=== PATIENT | female | born 1985 | race Caucasian/White ===

== ENCOUNTER 2021-11-07 03:26 | Emergency (ER) | payer OTHER, MEDICAID, SELFPAY ==
[2021-11-07] VITALS (11 sets, daily range): BP systolic 81–122; BP diastolic 46–66; PULSE 60–83; RESP 18–20; TEMP 36.8; O2SAT 92–98
[2021-11-07] MEDS: SODIUM CHLORIDE 0.9% 1,000 ML 1000 ML IV (04:42)
[2021-11-07] MEDS: ONDANSETRON 4 MG/2 ML INJ IV ×2 (04:42→09:04)
[2021-11-07 04:52] LABS: Add Manual Diff / Slide Review NO; Basophils Absolute Auto 0 /uL (0-100); Basophils Percent Auto 0.4 % (0-2); Eosinophils Absolute Auto 100 /uL (0-450); Hematocrit 37.3 % (36-46); Hemoglobin 13.3 g/dL (12.0-16.0); Lymphocytes Absolute Auto 2000 /uL (1100-4500); Lymphocytes Percent Auto 26.3 % (25-40); Mean Corpuscular HGB Conc 35.7 % (30-36); Mean Corpuscular Hemoglobin 33.2 PG (26-34); Mean Corpuscular Volume 93.2 fL (80-100); Monocytes Absolute Auto 500 /uL (0-900); Neutrophils Absolute Auto 5100 /uL (1500-7000); Neutrophils Percent Auto 66.3 % (50-75); Platelet Count 203 X10^3/uL (150-400); Red Cell Distribution Width 12.4 % (11.6-14.8); White Blood Cell Count 7.8 X10^3/uL (4.5-11.0)
[2021-11-07 05:00] LABS: Alanine Aminotransferase 14 IU/L (<35); Albumin 4.7 g/dL (3.5-5.0); Albumin Globulin Ratio 1.6 (1.0-2.8); Alkaline Phosphatase 46 U/L (38-126); Aspartate Aminotransferase 27 IU/L (14-36); BUN Creatinine Ratio 18.7 (6-22); Bilirubin Total 1.5 mg/dL (0.2-1.3); Blood Urea Nitrogen 14 mg/dL (7-17); Calcium 9.6 mg/dL (8.4-10.2); Carbon Dioxide 24 mmol/L (22-32); Chloride 105 mmol/L (98-107); Estimated Glomerular Filt Rate > 60 mL/min (>60); Glucose 100 mg/dL (70-100); HEMOLYSIS < 15 (0-50); Lipase 53 U/L (23-300); Potassium 3.9 mmol/L (3.4-5.1); Sodium 137 mmol/L (137-145); Total Protein 7.7 g/dL (6.3-8.2)
[2021-11-07] MEDS: KETOROLAC 30 MG/ML VIAL 15 MG IV (05:20)
--- NOTE | 2021-11-07 05:24 | ED_ITS ---
HPI - Abdominal Pain <Estela Ferguson, DO - Last Filed: 11/08/21 07:35> General Chief Complaint: Abdominal Pain Stated Complaint: d/v/n back pain, lower abd pain Time Seen by Provider: 11/07/21 05:16 Source: patient Mode of arrival: Wheelchair Limitations: no limitations History of Present Illness HPI narrative: This is a 35-year-old female on fluoxetine and midodrine. Patient states she h as had 24 hours of vomiting and right lower quadrant pain. Patient denies fevers but has felt chilled. She has felt shaky. She has had nausea and vomiting persistently. Denies any diarrhea constipation and states she has had normal bowel movements in the last 24 hours. She denies any black or bloody stools. Denies dysuria urgency or frequency. No vaginal bleeding or discharge. She has had some right back discomfort as well. Patient has a history of tubal ligation and hysterectomy with removal of cervix. She states both ovaries are present. She states she is allergic to penicillin. No tobacco, alcohol occasional edible. Her significant other had nausea and vomiting on Thursday the 02 of November 5 days ago. Related Data Home Medications Medication Instructions Recorded Confirmed fluoxetine 40 mg capsule (Prozac) 40 mg PO HS #0 10/20/17 05/25/18 oxybutynin chloride 5 mg tablet 5 mg PO TID #90 10/20/17 05/25/18 midodrine 5 mg tablet 5 mg PO TID 05/25/18 05/25/18 propranolol PO 05/25/18 05/25/18 Previous Rx's Medication Instructions Recorded lamotrigine 100 mg tablet 100 mg PO QHS #30 09/02/16 (Lamictal) fluticasone propionate 50 1 spray INTRANASAL BID #16 gm 07/27/17 mcg/actuation nasal spray,suspension loratadine 10 mg tablet 10 mg PO QDAY #30 tab 07/27/17 albuterol sulfate 90 mcg/actuation 1 puff INH QIDP PRN #1 inh 10/16/17 aerosol inhaler (Proventil HFA) fluticasone propionate 110 110 mcg INH BID #1 inh 10/16/17 mcg/actuation HFA aerosol inhaler (Flovent HFA) fluticasone propionate 110 1 puff INH BID #1 inh 10/21/17 mcg/actuation HFA aerosol inhaler (Flovent HFA) ondansetron 4 mg disintegrating 4 mg PO Q8H PRN #10 tab 11/07/21 tablet ondansetron 4 mg disintegrating 4 mg PO Q8H PRN #10 tab 11/07/21 tablet Allergies Allergy/AdvReac Type Severity Reaction Status Date / Time Penicillins [PENICILLINS] Allergy Unknown Unverified 05/25/18 17:05 Review of Systems <Estela Ferguson DO - Last Filed: 11/08/21 07:35> Review of Systems ROS Unobtainable: All systems reviewed & are unremarkable except as noted in HPI and below Patient History <Estela Ferguson DO - Last Filed: 11/08/21 07:35> Medical History Anemia (~2006) Ankle pain (~2008) Anxiety (~1999) Asthma (~1989) Cervical spine disease (~2009) Chronic back pain (~2008) Depression (~1999) Fecal incontinence (~2013) Foot pain (~2009) Gastric ulcer (~2014) GI bleeding (~2014) Hay fever (~1996) Hemorrhoids (~2011) Orthostatic hypotension (~2009) PTSD (post-traumatic stress disorder) (~1999) Scoliosis (~2009) Shoulder pain (~2003) Urinary incontinence (~2011) Surgical History Status post hysterectomy Status post laparoscopy Status post tubal ligation Family History Brother Heart disease Hypertension Child Age: 9 Epilepsy Child Age: 15 ADHD (attention deficit hyperactivity disorder) Father Age: 68 COPD (chronic obstructive pulmonary disease) Heart disease Hypertension Hyperlipidemia Mother Age: 58 Emphysema, unspecified Mental health problem Stroke Sister Age: 37 Cervical cancer Lupus Sister Age: 28 Back pain Social History marital status: unmarried,single household members: children and friend(s) pets and animals: No education level: college occupational status: employed [employer] Smoking Status: Never smoker alcohol intake: current substance use type: does not use during the past year weight has: decreased > 10 lbs well-balanced diet: about half the time daily servings fruits/ve-4 caffeine: Yes eating out: rarely or never Type(s) of exercise: walking frequency: daily Smoking Status: Never smoker alcohol intake frequency: other Substance Use Type: marijuana Exam <Estela Ferguson DO - Last Filed: 11/08/21 07:35> Narrative Exam Narrative: GENERAL: Alert and oriented x three, female in moderate distress. HEENT: Head normocephalic, atraumatic, EOMI, pupils reactive, face symmetric, moist mucous membranes NECK: Supple, full range of motion CARDIOVASCULAR: Regular rate and rhythm without murmurs, rubs or gallops. RESPIRATORY: Breath sounds equal bilaterally, no wheezes rales or rhonchi. ABDOMEN: Soft, generalized tenderness but greatest atright lower quadrant tenderness. Normoactive bowel sounds all 4 quadrants. No guarding or rebound, rigidity, no mass. : No CVA tenderness EXTREMITIES: Normal range of motion, no clubbing or edema. Neurovascularly intact NEUROLOGICAL: Cranial nerves II through XII grossly intact. Moving all extremities SKIN: Warm, dry, no petechiae, no rashes or lesions. Initial Vital Signs Initial Vital Signs: Vital Signs Temperature 98.2 F 11/07/21 04:19 Pulse Rate 77 11/07/21 04:19 Respiratory Rate 18 11/07/21 04:19 Blood Pressure 122/58 L 11/07/21 04:19 Pulse Oximetry 97 11/07/21 04:19 <Quin Leung DO - Last Filed: 11/07/21 16:11> Initial Vital Signs Initial Vital Signs: Vital Signs Temperature 98.2 F 11/07/21 04:19 Pulse Rate 77 11/07/21 04:19 Respiratory Rate 18 11/07/21 04:19 Blood Pressure 122/58 L 11/07/21 04:19 Pulse Oximetry 97 11/07/21 04:19 Course <Estela Ferguson DO - Last Filed: 11/08/21 07:35> Orders Ordered: Discontinued Medications Hydromorphone HCl (Hydromorphone 0.5 Mg Inj) 0.5 mg IV NOW ONE Stop: 11/07/21 06:46 Last Admin: 11/07/21 06:54 Dose: 0.5 mg Documented by: KEIRY Hydromorphone HCl (Hydromorphone 0.5 Mg Inj) 0.5 mg IV NOW ONE Stop: 11/07/21 08:45 Last Admin: 11/07/21 09:06 Dose: 0.5 mg Documented by: ANDRES Sodium Chloride (Normal Saline 0.9%) 1,000 mls @ 1,000 mls/hr IV BOLUS ONE Stop: 11/07/21 05:40 Last Infusion: 11/07/21 06:43 Dose: 0 mls/hr Documented by: Admin: 11/07/21 04:42 Dose: 1,000 mls/hr Documented by: KEIRY Ketorolac Tromethamine (Ketorolac 30 Mg/Ml Vial) 15 mg IV NOW ONE Stop: 11/07/21 05:17 Last Admin: 11/07/21 05:20 Dose: 15 mg Documented by: KEIRY Lorazepam (Lorazepam 2 Mg/Ml Inj) 0.5 mg IV NOW ONE Stop: 11/07/21 06:46 Last Admin: 11/07/21 06:53 Dose: 0.5 mg Documented by: KEIRY Morphine Sulfate (Morphine 4 Mg/Ml Inj) 4 mg IV NOW ONE Stop: 11/07/21 05:57 Last Admin: 11/07/21 06:03 Dose: 4 mg Documented by: BERONICA Ondansetron HCl (Ondansetron 4 Mg/2 Ml Inj) 4 mg IV NOW ONE Stop: 11/07/21 04:27 Last Admin: 11/07/21 04:42 Dose: 4 mg Documented by: KEIRY Ondansetron HCl (Ondansetron 4 Mg/2 Ml Inj) 4 mg IV NOW ONE Stop: 11/07/21 08:45 Last Admin: 11/07/21 09:04 Dose: 4 mg Documented by: ANDRES Pantoprazole Sodium (Pantoprazole 40 Mg Vial) 40 mg IV NOW ONE Stop: 11/07/21 08:45 Last Admin: 11/07/21 09:06 Dose: 40 mg Documented by: ANDRES Promethazine HCl (Promethazine 6.25 Mg/5 Ml Syrup) 25 mg PO NOW ONE Stop: 11/07/21 05:41 Last Admin: 11/07/21 06:33 Dose: Not Given Documented by: KEIRY Vital Signs Vital signs: Vital Signs - 8 hr 11/07/21 08:30 11/07/21 09:00 11/07/21 09:30 Pulse Rate 82 64 65 Respiratory Rate Blood Pressure 98/56 L 102/55 L 81/46 L Pulse Oximetry 96 97 92 11/07/21 09:33 11/07/21 10:06 Pulse Rate 65 83 Respiratory Rate 20 Blood Pressure 98/55 L 103/53 L Pulse Oximetry 98 97 <Quin Leung DO - Last Filed: 11/07/21 16:11> Orders Ordered: Discontinued Medications Hydromorphone HCl (Hydromorphone 0.5 Mg Inj) 0.5 mg IV NOW ONE Stop: 11/07/21 06:46 Last Admin: 11/07/21 06:54 Dose: 0.5 mg Documented by: KEIRY Hydromorphone HCl (Hydromorphone 0.5 Mg Inj) 0.5 mg IV NOW ONE Stop: 11/07/21 08:45 Last Admin: 11/07/21 09:06 Dose: 0.5 mg Documented by: ANDRES Sodium Chloride (Normal Saline 0.9%) 1,000 mls @ 1,000 mls/hr IV BOLUS ONE Stop: 11/07/21 05:40 Last Infusion: 11/07/21 06:43 Dose: 0 mls/hr Documented by: Admin: 11/07/21 04:42 Dose: 1,000 mls/hr Documented by: KEIRY Ketorolac Tromethamine (Ketorolac 30 Mg/Ml Vial) 15 mg IV NOW ONE Stop: 11/07/21 05:17 Last Admin: 11/07/21 05:20 Dose: 15 mg Documented by: KEIRY Lorazepam (Lorazepam 2 Mg/Ml Inj) 0.5 mg IV NOW ONE Stop: 11/07/21 06:46 Last Admin: 11/07/21 06:53 Dose: 0.5 mg Documented by: KEIRY Morphine Sulfate (Morphine 4 Mg/Ml Inj) 4 mg IV NOW ONE Stop: 11/07/21 05:57 Last Admin: 11/07/21 06:03 Dose: 4 mg Documented by: BERONICA Ondansetron HCl (Ondansetron 4 Mg/2 Ml Inj) 4 mg IV NOW ONE Stop: 11/07/21 04:27 Last Admin: 11/07/21 04:42 Dose: 4 mg Documented by: KEIRY Ondansetron HCl (Ondansetron 4 Mg/2 Ml Inj) 4 mg IV NOW ONE Stop: 11/07/21 08:45 Last Admin: 11/07/21 09:04 Dose: 4 mg Documented by: ANDRES Pantoprazole Sodium (Pantoprazole 40 Mg Vial) 40 mg IV NOW ONE Stop: 11/07/21 08:45 Last Admin: 11/07/21 09:06 Dose: 40 mg Documented by: ANDRES Promethazine HCl (Promethazine 6.25 Mg/5 Ml Syrup) 25 mg PO NOW ONE Stop: 11/07/21 05:41 Last Admin: 11/07/21 06:33 Dose: Not Given Documented by: KEIRY Vital Signs Vital signs: Vital Signs - 8 hr 11/07/21 08:30 11/07/21 09:00 11/07/21 09:30 Pulse Rate 82 64 65 Respiratory Rate Blood Pressure 98/56 L 102/55 L 81/46 L Pulse Oximetry 96 97 92 11/07/21 09:33 11/07/21 10:06 Pulse Rate 65 83 Respiratory Rate 20 Blood Pressure 98/55 L 103/53 L Pulse Oximetry 98 97 MDM - Abdominal Pain <Estela Ferguson DO - Last Filed: 11/08/21 07:35> Lab Data Result diagrams: 11/07/21 04:20 11/07/21 04:20 Labs: Lab Results 11/07/21 11/07/21 11/07/21 Range/Units 04:20 04:20 05:30 WBC 7.8 (4.5-11.0) X10^3/uL RBC 4.00 (4.0-5.2) X10^6/uL Hgb 13.3 (12.0-16.0) g/dL Hct 37.3 (36-46) % MCV 93.2 (80-100) fL MCH 33.2 (26-34) PG MCHC 35.7 (30-36) % RDW 12.4 (11.6-14.8) % Plt Count 203 (150-400) X10^3/uL Neut % (Auto) 66.3 (50-75) % Lymph % (Auto) 26.3 (25-40) % Randall % (Auto) 6.0 (3-14) % Eos % (Auto) 1.0 L (2-4) % Baso % (Auto) 0.4 (0-2) % Neut # (Auto) 5100 (4674-1338) /uL Lymph # (Auto) 2000 (3239-5888) /uL Randall # (Auto) 500 (0-900) /uL Eos # (Auto) 100 (0-450) /uL Baso # (Auto) 0 (0-100) /uL Sodium 137 (137-145) mmol/L Potassium 3.9 (3.4-5.1) mmol/L Chloride 105 (98-107) mmol/L Carbon Dioxide 24 (22-32) mmol/L BUN 14 (7-17) mg/dL Creatinine 0.75 (0.52-1.04) mg/dL Estimated GFR > 60 (>60) mL/min BUN/Creatinine Ratio 18.7 (6-22) Glucose 100 (70-100) mg/dL Calcium 9.6 (8.4-10.2) mg/dL Total Bilirubin 1.5 H (0.2-1.3) mg/dL AST 27 (14-36) IU/L ALT 14 (<35) IU/L Alkaline Phosphatase 46 (38-126) U/L Total Protein 7.7 (6.3-8.2) g/dL Albumin 4.7 (3.5-5.0) g/dL Globulin 3.0 (1.7-4.1) g/dL Albumin/Globulin Ratio 1.6 (1.0-2.8) Lipase 53 (23-300) U/L Urine Color Yellow Urine Appearance Cloudy Urine pH 5.5 (4.5-8.0) Ur Specific Dalton 1.025 (1.000-1.035) Urine Protein 1+ H (Negative) Urine Glucose (UA) Negative (Negative) g/dL Urine Ketones 1+ H (NEGATIVE) Urine Occult Blood Trace-intact (Negative) Urine Nitrate Negative (Negative) Urine Bilirubin Negative (NEGATIVE) Urine Urobilinogen 0.2 (0.2) E.U./dL Ur Leukocyte Esterase 1+ H (NEGATIVE) Urine RBC 0-1/hpf (0-5/HPF) Urine WBC 1-5/hpf (0-5/HPF) Ur Squamous Epith Cells >30 /hpf H (0-5/HPF) Urine Bacteria Moderate (10-30) H (None) Ur Culture Indicated? Cult not indicated Micro UA Comment * Imaging Data CT scan - abdomen/pelvis: Radiologist's Impression: 4 cm complex cystic lesion right hemipelvis with fluid level possible hemorrhagic cyst. Post hysterectomy. Left ovary not identified. Consider pelvic ultrasound with duplex interrogation. Nonspecific ileitis terminal ileum. Appendix not identified. ECG Data Attestation: I personally reviewed and interpreted this ECG as follows: Interpretation: Sinus rhythm rate of 64 IA 194 QRS of 92 and QTC of 429. No acute ST changes appreciated. MDM Narrative Medical decision making narrative: This is a 35-year-old female with vomiting, right lower quadrant pain on exam patient is quite tender she has a 4 cm complex cystic lesion. Some thickening of the ileum which is nonspecific appendix is clearly identified. Patient states she does have an appendix in place. Patient has had quite a bit of pain but has otherwise reassuring labs. Patient signed out to Dr. Leung while awaiting pelvic ultrasound. <Quin Leung, - Last Filed: 11/07/21 16:11> Lab Data Labs: Lab Results 11/07/21 11/07/21 11/07/21 Range/Units 04:20 04:20 05:30 WBC 7.8 (4.5-11.0) X10^3/uL RBC 4.00 (4.0-5.2) X10^6/uL Hgb 13.3 (12.0-16.0) g/dL Hct 37.3 (36-46) % MCV 93.2 (80-100) fL MCH 33.2 (26-34) PG MCHC 35.7 (30-36) % RDW 12.4 (11.6-14.8) % Plt Count 203 (150-400) X10^3/uL Neut % (Auto) 66.3 (50-75) % Lymph % (Auto) 26.3 (25-40) % Randall % (Auto) 6.0 (3-14) % Eos % (Auto) 1.0 L (2-4) % Baso % (Auto) 0.4 (0-2) % Neut # (Auto) 5100 (4487-1276) /uL Lymph # (Auto) 2000 (8394-0392) /uL Randall # (Auto) 500 (0-900) /uL Eos # (Auto) 100 (0-450) /uL Baso # (Auto) 0 (0-100) /uL Sodium 137 (137-145) mmol/L Potassium 3.9 (3.4-5.1) mmol/L Chloride 105 (98-107) mmol/L Carbon Dioxide 24 (22-32) mmol/L BUN 14 (7-17) mg/dL Creatinine 0.75 (0.52-1.04) mg/dL Estimated GFR > 60 (>60) mL/min BUN/Creatinine Ratio 18.7 (6-22) Glucose 100 (70-100) mg/dL Calcium 9.6 (8.4-10.2) mg/dL Total Bilirubin 1.5 H (0.2-1.3) mg/dL AST 27 (14-36) IU/L ALT 14 (<35) IU/L Alkaline Phosphatase 46 (38-126) U/L Total Protein 7.7 (6.3-8.2) g/dL Albumin 4.7 (3.5-5.0) g/dL Globulin 3.0 (1.7-4.1) g/dL Albumin/Globulin Ratio 1.6 (1.0-2.8) Lipase 53 (23-300) U/L Urine Color Yellow Urine Appearance Cloudy Urine pH 5.5 (4.5-8.0) Ur Specific Dalton 1.025 (1.000-1.035) Urine Protein 1+ H (Negative) Urine Glucose (UA) Negative (Negative) g/dL Urine Ketones 1+ H (NEGATIVE) Urine Occult Blood Trace-intact (Negative) Urine Nitrate Negative (Negative) Urine Bilirubin Negative (NEGATIVE) Urine Urobilinogen 0.2 (0.2) E.U./dL Ur Leukocyte Esterase 1+ H (NEGATIVE) Urine RBC 0-1/hpf (0-5/HPF) Urine WBC 1-5/hpf (0-5/HPF) Ur Squamous Epith Cells >30 /hpf H (0-5/HPF) Urine Bacteria Moderate (10-30) H (None) Ur Culture Indicated? Cult not indicated Micro UA Comment * Imaging Data US - [employer]: Radiologist's Impression: Signed Patient: Kary Holman MR#: [id number] : 1985 Acct:[id number] Age/Sex: 35 / F Date of Service: 11/07/21 Loc: ED Accession Number: [id number] ?? Procedure: US pelvic complete Ordering Provider: Quin Leung D.O. PROCEDURE:? US PELVIC COMPLETE ? INDICATIONS:? PAIN ? TECHNIQUE:? Real-time scanning was performed of the pelvic organs, with image documentation.? Additional endovaginal scanning was necessary due to incomplete visualization of the adnexal and endometrial structures by transabdominal scanning.? ? COMPARISON:? None. ? FINDINGS:? ?? Uterus:? Surgically absent. ? Ovaries:? The right ovary measures 3.9 x 2.4 x 3 cm.? A 3 x 2.4 x 2.5 cm hypoechoic lesion with internal echoes is seen in the ovary, compatible with a hemorrhagic cyst or endometrioma. The left ovary measures 1.5 x 2.5 x 2 point cm. ? Other:? No pathologic free abdominal or pelvic fluid. ? ? IMPRESSION:? Hypoechoic lesion within the right ovary as detailed above, which may reflect a hemorrhagic cyst or endometrioma. ? We strive to produce accurate, complete, and clear reports of imaging services. To assist us in improving patient care, this report was composed using standard report templates and voice recognition software. Therefore, it may contain abnormal punctuation, insertions and/or omissions. Occasional wrong-word or sound-alike substitutions may occur. Though we review the report and make efforts to correct it, we do recommend that the report be read carefully in proper context to recognize any text inaccuracies. ? ? Dictated by: Syed Clark M.D. on 11/07/2021 at 8:39 ? ? MDM Narrative Medical decision making narrative: This is a 35-year-old female with vomiting, right lower quadrant pain on exam patient is quite tender she has a 4 cm complex cystic lesion. Some thickening of the ileum which is nonspecific appendix is clearly identified. Patient states she does have an appendix in place. Patient has had quite a bit of pain but has otherwise reassuring labs. Patient signed out to Dr. Leung while awaiting pelvic ultrasound. Patient signed out to me by Dr. Ferguson. I have seen and evaluated patient myself. She continues to be nauseous no actual vomiting emergency department. CT does show some ileitis which is most consistent with her symptoms. However ovarian cyst was noted as well. Pelvic ultrasound also confirmed ovarian cyst without torsion. Patient is persistently nauseated despite Zofran Phenergan Ativan. She continues to have pain despite Toradol. He Dilaudid. I have discussed with her she will experience some pain and, nausea. We discussed oral rehydration technique. At this time there is no need for admission. She understands that and would actually like to be curled up in her bed. Discharge Plan Departure Patient Disposition: Home Clinical Impression: Gastroenteritis, Cyst of right ovary Instructions: Ovarian Cyst, DI for Viral Gastroenteritis -- Adult Activity Restrictions/Additional Instructions: *You have been diagnosed with gastroenteritis and right ovarian cyst *What to do: He increase fluids as tolerated. Recommend Pedialyte or Gatorade like substance. He may eat as tolerated. He may experience some pain as well. I recommend taking pain medications as Tylenol or ibuprofen about 15-30 minute after your nausea medication. *Continue to take medications as directed--> SENT TO [facility] Zofran 4 mg every 8 hours if needed for nausea or vomiting Ibuprofen 800 mg every 8 hours if needed for [id number] pain Tylenol 1000 mg every 6 hours if needed for [id number] *Follow up with your primary care provider in 2-3 days or call [phone] *Return to ER if you should have increasing pain, fever, inability to tolerate fluids, persistent vomiting despite medication or any new, worsening or concerning symptoms Prescriptions: New ondansetron 4 mg tablet,disintegrating 4 mg PO Q8H PRN (Reason: nausea and vomiting) Qty: 10 0RF ondansetron 4 mg tablet,disintegrating 4 mg PO Q8H PRN (Reason: nausea and vomiting) Qty: 10 0RF No Action midodrine 5 mg tablet 5 mg PO TID 0RF propranolol PO 0RF lamotrigine [Lamictal] 100 MG tablet 100 mg PO QHS Qty: 30 2RF fluticasone propionate 16 GM spray,suspension 1 spray Intranasal BID Qty: 16 0RF loratadine 10 MG tablet 10 mg PO QDAY Qty: 30 0RF albuterol sulfate [Proventil HFA] 90 MCG/PUFF HFA aerosol inhaler 1 puff INH QIDP PRNQty: 1 0RF fluticasone propionate [Flovent HFA] 12 GM HFA aerosol inhaler 110 mcg INH BID Qty: 1 0RF oxybutynin chloride 5 MG tablet 5 mg PO TID Qty: 90 0RF fluoxetine [Prozac] 40 MG capsule 40 mg PO HS Qty: 0 0RF fluticasone propionate [Flovent HFA] 12 GM HFA aerosol inhaler 1 puff INH BID Qty: 1 0RF
--- NOTE | 2021-11-07 05:52 | DI.CT.S_ITS ---
PROCEDURE: CT ABDOMEN PELVIS W CON INDICATIONS: RLQ pain X 24 hours, vomiting TECHNIQUE: After the administration of intravenous contrast, axial sections acquired from the lung bases to the pubic symphysis. Coronal and sagittal reformats were performed. For radiation dose reduction, the following was used: automated exposure control, adjustment of mA and/or kV according to patient size. COMPARISON: [facility], CT, CT ABDOMEN PELVIS WITH CONTRAST, 11/08/2020, 14:06. [facility], CT, CT ABDOMEN PELVIS WITH CONTRAST, 10/01/2019, 14:17. FINDINGS: Image quality: Excellent. Lung bases: Unremarkable. Heart: No significant findings. ABDOMEN: Liver: Unremarkable. Gallbladder: Unremarkable. Biliary ducts: Unremarkable. Pancreas: Unremarkable. Spleen: Unremarkable. Adrenal Glands: Unremarkable. Kidneys and Ureters: Unremarkable. Stomach and Bowel: Stomach and colon are unremarkable. Mild circumferential wall thickening involving the terminal ileum which could be due to underdistention versus ileitis. The appendix is not identified. No free fluid or air identified adjacent to the cecum. Peritoneum: No abnormal intraperitoneal fluid. No free air. Ventral Wall: No hernias. Abdominal Nodes: No retroperitoneal or mesenteric adenopathy by size criteria. Vessels: Aorta and inferior vena cava are normal in size. PELVIS: Pelvic Organs: Uterus is absent. 3 centimeter right adnexal cyst with internal fluid debris level. Left ovary is not identified. Bladder: Unremarkable. Pelvic Nodes: No enlarged lymph nodes. Miscellaneous: No hernias are seen. Bones: Unremarkable. IMPRESSION: 1. 3.0 centimeter complex right adnexal cyst. Recommend pelvic ultrasound for definitive characterization. 2. The appendix is not identified. No secondary signs of appendicitis such as free fluid or inflammatory change noted adjacent to the cecum. 3. Mild circumferential wall thickening involving the terminal ileum which could be due to underdistention versus nonspecific ileitis. 4. Hysterectomy. Dictated by: Lisandra Reyna MD, PhD on 11/07/2021 at 7:38 Approved by: Lisandra Reyna MD, PhD on 11/07/2021 at 7:43
[2021-11-07 05:56] LABS: Bilirubin Urine UA NEGATIVE (NEGATIVE); Color Urine UA YELLOW; Glucose Urine UA NEGATIVE (Negative); Ketones Urine UA 1+ (NEGATIVE); Leukocyte Esterase Urine UA 1+ (NEGATIVE); Nitrite Urine UA NEGATIVE (Negative); Occult Blood Urine UA TRACE-INTACT (Negative); Protein Urine UA 1+ (Negative); Specific Gravity Urine UA 1.025 (1.000-1.035); Urobilinogen Urine UA 0.2 E.U./dL (0.2)
[2021-11-07 05:58] LABS: Appearance Urine UA Cloudy; pH Urine UA 5.5 (4.5-8.0)
[2021-11-07] MEDS: MORPHINE 4 MG/ML INJ IV (06:03)
[2021-11-07 06:48] LABS: Bacteria Urine Moderate (10-30); Culture Indicated Urine Cult Not Indicated; RBC Urine 0-1/HPF (0-5/HPF); Squamous Epithelial Cell Urine >30 /HPF (0-5/HPF); WBC Urine 1-5/HPF (0-5/HPF)
[2021-11-07] MEDS: LORazepam 2 MG/ML INJ 0.5 MG IV (06:53)
[2021-11-07] MEDS: HYDROMORPHONE 0.5 MG INJ IV ×2 (06:54→09:06)
--- NOTE | 2021-11-07 07:08 | DI.US.S_ITS ---
PROCEDURE: US PELVIC COMPLETE INDICATIONS: PAIN TECHNIQUE: Real-time scanning was performed of the pelvic organs, with image documentation. Additional endovaginal scanning was necessary due to incomplete visualization of the adnexal and endometrial structures by transabdominal scanning. COMPARISON: None. FINDINGS: Uterus: Surgically absent. Ovaries: The right ovary measures 3.9 x 2.4 x 3 cm. A 3 x 2.4 x 2.5 cm hypoechoic lesion with internal echoes is seen in the ovary, compatible with a hemorrhagic cyst or endometrioma. The left ovary measures 1.5 x 2.5 x 2 point cm. Other: No pathologic free abdominal or pelvic fluid. IMPRESSION: Hypoechoic lesion within the right ovary as detailed above, which may reflect a hemorrhagic cyst or endometrioma. We strive to produce accurate, complete, and clear reports of imaging services. To assist us in improving patient care, this report was composed using standard report templates and voice recognition software. Therefore, it may contain abnormal punctuation, insertions and/or omissions. Occasional wrong-word or sound-alike substitutions may occur. Though we review the report and make efforts to correct it, we do recommend that the report be read carefully in proper context to recognize any text inaccuracies. Dictated by: Syed Clark M.D. on 11/07/2021 at 8:39 Approved by: Syed Clark M.D. on 11/07/2021 at 8:42
--- NOTE | 2021-11-07 08:41 | PC.NURSE ---
pt has asked for nausea medicine, the dr said she wanted to see her first, i let the pt know and gave her some alcohol pads to wave near her nose for relief.
[2021-11-07] MEDS: PANTOPRAZOLE 40 MG VIAL IV (09:06)
== END 2021-11-07 10:09 | disposition home or self-care (01) ==
PROVIDERS: Emergency Medicine; Emergency Provider Emergency Medicine; Family Provider Family Medicine
DX: K52.9 Noninfective gastroenteritis and colitis, unspecified (principal); N83.201 Unspecified ovarian cyst, right side; R11.2 Nausea with vomiting, unspecified
CPT/HCPCS: 36415; 74177; 76830; 76856; 80053; 81001; 83690; 85025; 93005; 96361; 96374; 96375; 96376; 99284; 99285; C9113; J1170; J1885; J2060; J2270; J2405; Q9967